=== PATIENT | male | born 1965 | race Caucasian/White ===

== ENCOUNTER → 2016-05-25 | Outpatient (CLI) | payer OTHER ==
[~2016-05-25] VITALS: Ht 175.3 cm; Wt 68.0 kg
[~2016-05-25] MED LIST: LEVO100T5 PO; LIDOCAINE 2% INJ 100 MG/5 ML SDV (FOR ANES.) As Ordered ONE; LR 1,000 ML IV SCH; PROPOFOL 200 MG/20 ML VIAL As Ordered ONE
--- NOTE | 2016-05-25 14:29 | ROOR ---
Patient Name: Kg Le Procedure Date: 05/25/2016 1:53 PM Date of : 1965 Age: 51 Room: [facility] Gender: Male Note Status: Finalized Procedure: Colonoscopy Indications: Screening for colorectal malignant neoplasm Providers: Luis Vann MD Referring MD: ANN MARIE DALTON MD Requesting Provider: Medicines: Monitored Anesthesia Care Complications: No immediate complications. Procedure: Pre-Anesthesia Assessment: - Prior to the procedure, a History and Physical was performed, and patient medications and allergies were reviewed. The patient is competent. The risks and benefits of the procedure and the sedation options and risks were discussed with the patient. All questions were answered and informed consent was obtained. Patient identification and proposed procedure were verified by the physician, the nurse and the assembler knife in the procedure room. Mental Status Examination: alert and oriented. Airway Examination: normal oropharyngeal airway and neck mobility. CV Examination: regular rate and rhythm. Prophylactic Antibiotics: The patient does not require prophylactic antibiotics. Prior Anticoagulants: The patient has taken no previous anticoagulant or antiplatelet agents. ASA Grade Assessment: II - A patient with mild systemic disease. After reviewing the risks and benefits, the patient was deemed in satisfactory condition to undergo the procedure. The anesthesia plan was to use monitored anesthesia care (MAC). Immediately prior to administration of medications, the patient was re-assessed for adequacy to receive sedatives. The heart rate, respiratory rate, oxygen saturations, blood pressure, adequacy of pulmonary ventilation, and response to care were monitored throughout the procedure. The physical status of the patient was re-assessed after the procedure. The Colonoscope [id number] #[id number] was introduced through the anus and advanced to the cecum, identified by the ileocecal valve. The colonoscopy was somewhat difficult due to poor bowel prep. The patient tolerated the procedure well. The quality of the bowel preparation was poor and 10 percent obscured. Findings: The perianal and digital rectal examinations were normal. A small amount of semi-liquid stool was found in the sigmoid colon, in the proximal ascending colon and in the cecum, interfering with visualization. The exam was otherwise without abnormality. Impression: - Preparation of the colon was poor. - Stool in the sigmoid colon, in the proximal ascending colon and in the cecum. - The examination was otherwise normal. - No specimens collected. Recommendation: - Discharge patient to home. - Resume previous diet. - Continue present medications. - Repeat colonoscopy in 5-10 years for screening purposes. Luis Vann MD 05/25/2016 2:29:08 PM Number of Addenda: 0 Note Initiated On: 05/25/2016 1:53 PM Estimated Blood Loss: Estimated blood loss: none.
[2016-05-25 14:47] VITALS: BP 133/75
== END ==
LOC: M OPP 12:06
PROVIDERS: ATTEND Surgery
DX: Z12.11 Encounter for screening for malignant neoplasm of colon (principal); E03.9 Hypothyroidism, unspecified; F17.200 Nicotine dependence, unspecified, uncomplicated; Z79.899 Other long term (current) drug therapy

== ENCOUNTER → 2018-05-24 | Outpatient (REF) | payer OTHER ==
[~2018-05-24] MED LIST changes: -LIDOCAINE 2% INJ 100 MG/5 ML SDV (FOR ANES.) As Ordered ONE; -LR 1,000 ML IV SCH; -PROPOFOL 200 MG/20 ML VIAL As Ordered ONE
== END ==
LOC: M LAB REF 10:53
PROVIDERS: ATTEND Surgery
DX: C44.722 Squamous cell carcinoma of skin of right lower limb, including hip (principal)

== ENCOUNTER → 2019-03-27 | Outpatient (REF) | payer OTHER | LOC: M LAB REF 16:15 | PROVIDERS: ATTEND Dermatology | DX: D48.9 Neoplasm of uncertain behavior, unspecified (principal) ==

== ENCOUNTER → 2021-08-31 | Outpatient (REF) | payer OTHER | LOC: M SFHCDERM 13:57 | PROVIDERS: ATTEND Physician Assistant | DX: L71.0 Perioral dermatitis (principal) ==

== ENCOUNTER → 2021-10-19 | Outpatient (CLI) | payer OTHER ==
[~2021-10-19] MED LIST changes: +HUMU1INJ2 SC; +IBUP200T46 PO; +MULT-90 PO
== END ==
LOC: M LABSMTC 11:46
PROVIDERS: ATTEND Surgery
DX: Z11.52 Encounter for screening for COVID-19 (principal)

== ENCOUNTER 2021-10-22 13:43 | Day surgery (SDC) | payer OTHER ==
[~2021-10-22] VITALS: Ht 175.3 cm; Wt 63.0 kg
[~2021-10-22 13:43] MED LIST changes: +NS 1,000 ML IV ONE
[2021-10-22] MEDS ORDERED: LIDOCAINE 2% 100MG/5ML SDV (FOR ANES.) As Ordered ONE (15:01)
[2021-10-22 16:10] VITALS: BP 120/64
== END 2021-10-22 16:49 | disposition home or self-care (01) ==
LOC: M OPP 13:43
PROVIDERS: ATTEND Surgery
DX: K62.89 Other specified diseases of anus and rectum (principal); C20 Malignant neoplasm of rectum; K56.690 Other partial intestinal obstruction; K62.5 Hemorrhage of anus and rectum; E11.9 Type 2 diabetes mellitus without complications; E03.9 Hypothyroidism, unspecified; F17.210 Nicotine dependence, cigarettes, uncomplicated; Z80.1 Family history of malignant neoplasm of trachea, bronchus and lung; Z79.02 Long term (current) use of antithrombotics/antiplatelets; Z79.1 Long term (current) use of non-steroidal anti-inflammatories (NSAID); Z79.4 Long term (current) use of insulin; Z79.899 Other long term (current) drug therapy

== ENCOUNTER → 2021-10-28 | Outpatient (CLI) | payer OTHER ==
[~2021-10-28] MED LIST changes: +GASTROGRAFIN SOLUTION 30ML (Q9963) As Ordered ONE; +ISOVUE-370 76% 100ML VIAL As Ordered ONE; -NS 1,000 ML IV ONE
== END ==
LOC: M RAD 08:07
PROVIDERS: ATTEND Surgery
DX: C21.1 Malignant neoplasm of anal canal (principal); R91.8 Other nonspecific abnormal finding of lung field
CPT/HCPCS: 71260; 74178; Q9963; Q9967

== ENCOUNTER → 2021-11-02 | Outpatient (CLI) | payer OTHER ==
[~2021-11-02] MED LIST changes: -GASTROGRAFIN SOLUTION 30ML (Q9963) As Ordered ONE; -ISOVUE-370 76% 100ML VIAL As Ordered ONE
[2021-11-02 10:57] LABS: HEMATOCRIT 39.1 % (42.0-52.0); MEAN CORPUSCULAR HEMOGLOBIN 31.3 pg (27.0-33.0); MEAN CORPUSCULAR HGB CONC 33.2 g/dl (32.0-36.5); MEAN CORPUSCULAR VOLUME 94.2 fl (80.0-96.0); PLATELET COUNT, AUTOMATED 174 10^3/uL (150-450); RED BLOOD COUNT 4.15 10^6/uL (4.30-6.10); WHITE BLOOD COUNT 8.7 10^3/uL (4.0-10.0)
[2021-11-02 12:05] LABS: ALBUMIN 3.5 GM/DL (3.2-5.2); ALT/SGPT 15 U/L (12-78); BILIRUBIN,TOTAL 0.8 MG/DL (0.2-1.0); BLOOD UREA NITROGEN 19 MG/DL (7-18); CALCIUM LEVEL 8.9 MG/DL (8.5-10.1); CARBON DIOXIDE LEVEL 28 MEQ/L (21-32); CHLORIDE LEVEL 105 MEQ/L (98-107); CREATININE FOR GFR 0.88 MG/DL (0.70-1.30); GLOMERULAR FILTRATION RATE > 60.0 (>56); GLUCOSE, FASTING 258 MG/DL (70-100); POTASSIUM SERUM 4.4 MEQ/L (3.5-5.1); SODIUM LEVEL 139 MEQ/L (136-145); TOTAL PROTEIN 6.6 GM/DL (6.4-8.2)
== END ==
LOC: M LAB 10:04
PROVIDERS: ATTEND Surgery
DX: C21.1 Malignant neoplasm of anal canal (principal); Z12.11 Encounter for screening for malignant neoplasm of colon

== ENCOUNTER → 2021-11-19 | Outpatient (CLI) | payer OTHER ==
[~2021-11-19] MED LIST changes: +METF10004 PO; +OXYC1TAB23 PO; +TAMS1CAP17 PO
== END ==
LOC: M ONCR 13:02
PROVIDERS: ATTEND General Practice
DX: C21.1 Malignant neoplasm of anal canal (principal); Z80.1 Family history of malignant neoplasm of trachea, bronchus and lung; F17.210 Nicotine dependence, cigarettes, uncomplicated; Z79.890 Hormone replacement therapy; Z79.4 Long term (current) use of insulin

== ENCOUNTER → 2021-12-02 | Outpatient (CLI) | payer OTHER | LOC: M LABSMTC 11:20 | PROVIDERS: ATTEND Anesthesiology | DX: Z01.812 Encounter for preprocedural laboratory examination (principal); Z11.52 Encounter for screening for COVID-19 ==

== ENCOUNTER 2021-12-07 07:08 | Outpatient (RCR) | payer OTHER ==
[~2021-12-07 07:08] MED LIST changes: -LIDOCAINE 1% MDV 20ML VIAL As Ordered ONE; -MIDAZOLAM INJ 2MG/2ML VIAL (J2250 PER 1MG) As Ordered ONE; -NS 1,000 ML IV SCH; -ceFAZolin 2 GM/D5W 50 ML IV BAG (J0690 PER 500MG) As Ordered ONE; -ceFAZolin SOD 2 GM in IV 1 EA IV ONE; -diphenhydrAMINE 50MG/ML VIAL (J1200) As Ordered ONE; -fentaNYL 100 MCG/2 ML INJECTION As Ordered ONE
[2021-12-11] MEDS ORDERED: OXYC1TAB23 PO (13:58)
[2021-12-29] MEDS ORDERED: OXYC1TAB23 PO (09:44)
== END 2021-12-25 ==
LOC: M ONCR 07:08
PROVIDERS: ATTEND General Practice
DX: C21.1 Malignant neoplasm of anal canal (principal)

== ENCOUNTER → 2021-12-07 | Outpatient (CLI) | payer OTHER ==
[~2021-12-07] VITALS: Ht 175.3 cm; Wt 63.0 kg
[~2021-12-07] MED LIST changes: +LIDOCAINE 1% MDV 20ML VIAL As Ordered ONE; +MIDAZOLAM INJ 2MG/2ML VIAL (J2250 PER 1MG) As Ordered ONE; +NS 1,000 ML IV SCH; +ceFAZolin 2 GM/D5W 50 ML IV BAG (J0690 PER 500MG) As Ordered ONE; +ceFAZolin SOD 2 GM in IV 1 EA IV ONE; +diphenhydrAMINE 50MG/ML VIAL (J1200) As Ordered ONE; +fentaNYL 100 MCG/2 ML INJECTION As Ordered ONE
[2021-12-07 15:00] VITALS: BP 127/77
== END ==
LOC: M IRPRO 11:11
PROVIDERS: ATTEND Internal Medicine Medical Oncology
DX: C21.1 Malignant neoplasm of anal canal (principal)
CPT/HCPCS: 36561; 99152; 99153; C1769; C1788; C1894; J0690; J1200; J1642; J1644; J2250; J3010

== ENCOUNTER → 2021-12-22 | Outpatient (POV) | payer OTHER ==
[~2021-12-22] VITALS: Ht 175.3 cm; Wt 67.2 kg
[2021-12-22 10:45] VITALS: BP 119/72
== END ==
LOC: M IRPOV 10:35
PROVIDERS: ATTEND Radiology Diagnostic Radiology
DX: Z45.2 Encounter for adjustment and management of vascular access device (principal)

== ENCOUNTER → 2022-01-15 | Outpatient (REF) | payer OTHER ==
[~2022-01-15] MED LIST changes: +ATOR1TAB21; +ONDA-84 PO; +PROC10TA5 PO; +[UNRECOGNIZED DRUG - CODE] PR
[2022-01-15 14:39] LABS: APPEARANCE, URINE MANUAL CLOUDY (CLEAR); BILIRUBIN, URINE MANUAL NEGATIVE (NEGATIVE); BLOOD URINE MANUAL POSITIVE (NEGATIVE); COLOR, URINE MANUAL LT YELLOW (YELLOW); GLUCOSE, URINE (UA) MANUAL 4+(1000 MG/DL) mg/dL (NEGATIVE); KETONE, URINE MANUAL NEGATIVE (NEGATIVE); LEUKOCYTE ESTERASE, URINE MAN POSITIVE (NEGATIVE); NITRITE, URINE MANUAL POSITIVE (NEGATIVE); PROTEIN, URINE MANUAL 3+ mg/dL (NEGATIVE); SPECIFIC GRAVITY,URINE MANUAL 1.025 (1.002-1.035); UROBILINOGEN, URINE MANUAL NORMAL (NORMAL)
[2022-01-15 15:22] LABS: BACTERIA, URINE LARGE AMOUNT; RBC, URINE TNTC /hpf (0-3); SQUAMOUS EPITHELIAL CELL URINE SMALL AMOUNT /hpf (SMALL AMT); WBC, URINE 30-40 /hpf (0-3)
== END ==
LOC: M SMT 13:16
PROVIDERS: ATTEND Urology
DX: N39.0 Urinary tract infection, site not specified (principal)

== ENCOUNTER 2022-01-25 08:50 | Outpatient (RCR) | payer OTHER ==
[2022-01-25] MEDS ORDERED: TRIA25CR TOP (09:32)
[2022-01-27] MEDS ORDERED: OXYC1TAB23 PO (11:12)
[2022-02-01] MEDS ORDERED: OXYB10TA23 (10:42)
[2022-02-01] MEDS ORDERED: CIPR500T39 (10:42)
[2022-02-08] MEDS ORDERED: MORP-69 PO (09:10)
[2022-02-12] MEDS ORDERED: OXYC1TAB23 PO (12:28)
[2022-02-15] MEDS ORDERED: SILV1CRE60 TOP (13:24)
== END 2022-01-25 23:59 | disposition home or self-care (01) ==
LOC: M ONCR 08:50
PROVIDERS: ATTEND General Practice
DX: C21.1 Malignant neoplasm of anal canal (principal)

== ENCOUNTER 2022-02-16 09:07 | Outpatient (RCR) | payer OTHER ==
[~2022-02-16 09:07] MED LIST changes: +CIPR500T39; +MORP-69 PO; +OXYB10TA23; +SILV1CRE60 TOP; +TRIA25CR TOP
== END 2022-02-24 ==
LOC: M ONCR 09:07
PROVIDERS: ATTEND General Practice
DX: C21.1 Malignant neoplasm of anal canal (principal)

== ENCOUNTER → 2022-03-02 | Outpatient (CLI) | payer OTHER ==
[~2022-03-02] MED LIST changes: +LEVO125C PO
== END ==
LOC: M ONCR 10:45
PROVIDERS: ATTEND General Practice
DX: C21.1 Malignant neoplasm of anal canal (principal); R59.0 Localized enlarged lymph nodes; Z92.21 Personal history of antineoplastic chemotherapy; Z92.3 Personal history of irradiation

== ENCOUNTER → 2022-03-16 | Outpatient (CLI) | payer OTHER | LOC: M ONCR 10:06 | PROVIDERS: ATTEND General Practice | DX: C21.1 Malignant neoplasm of anal canal (principal); Z92.21 Personal history of antineoplastic chemotherapy; Z92.3 Personal history of irradiation ==

== ENCOUNTER → 2022-05-07 | Outpatient (CLI) | payer OTHER ==
[~2022-05-07] MED LIST changes: +GASTROGRAFIN SOLUTION 30ML As Ordered ONE; +ISOVUE-370 76% 100ML VIAL As Ordered ONE
== END ==
LOC: M RAD 09:36
PROVIDERS: ATTEND General Practice
DX: C21.1 Malignant neoplasm of anal canal (principal)

== ENCOUNTER → 2022-05-19 | Outpatient (CLI) | payer OTHER ==
[~2022-05-19] MED LIST changes: -GASTROGRAFIN SOLUTION 30ML As Ordered ONE; -ISOVUE-370 76% 100ML VIAL As Ordered ONE
== END ==
LOC: M ONCR 10:13
PROVIDERS: ATTEND Specialist
DX: C21.1 Malignant neoplasm of anal canal (principal); F17.210 Nicotine dependence, cigarettes, uncomplicated; Z79.4 Long term (current) use of insulin; Z79.891 Long term (current) use of opiate analgesic; Z79.890 Hormone replacement therapy; Z79.899 Other long term (current) drug therapy; Z92.21 Personal history of antineoplastic chemotherapy; Z92.3 Personal history of irradiation

== ENCOUNTER → 2022-06-28 | Outpatient (REF) | payer OTHER | LOC: M SFHCDERM 17:36 | PROVIDERS: ATTEND Physician Assistant | DX: L71.0 Perioral dermatitis (principal) ==

== ENCOUNTER 2022-08-13 11:58 | Day surgery (SDC) | payer OTHER ==
[~2022-08-13] VITALS: Ht 175.3 cm; Wt 67.0 kg
[~2022-08-13 11:58] MED LIST changes: -ATOR1TAB21; +ATOR1TAB21 PO; +CLIN1LOT TOP; +NS 1,000 ML IV ONE
[2022-08-13] MEDS ORDERED: propofoL 200 MG/20 ML VIAL As Ordered ONE (12:38)
[2022-08-13 13:00] VITALS: BP 124/71
== END 2022-08-13 13:10 | disposition home or self-care (01) ==
LOC: M OPP 11:58
PROVIDERS: ATTEND Surgery
DX: Z85.038 Personal history of other malignant neoplasm of large intestine (principal); K52.89 Other specified noninfective gastroenteritis and colitis; F17.200 Nicotine dependence, unspecified, uncomplicated; Z79.02 Long term (current) use of antithrombotics/antiplatelets; Z79.1 Long term (current) use of non-steroidal anti-inflammatories (NSAID); Z79.4 Long term (current) use of insulin; Z79.890 Hormone replacement therapy

== ENCOUNTER → 2022-08-17 | Outpatient (CLI) | payer OTHER ==
[~2022-08-17] MED LIST changes: -NS 1,000 ML IV ONE
== END ==
LOC: M ONCR 10:25
PROVIDERS: ATTEND General Practice
DX: Z08 Encounter for follow-up examination after completed treatment for malignant neoplasm (principal); Z85.048 Personal history of other malignant neoplasm of rectum, rectosigmoid junction, and anus; F17.210 Nicotine dependence, cigarettes, uncomplicated; Z92.21 Personal history of antineoplastic chemotherapy; Z92.3 Personal history of irradiation; Z79.890 Hormone replacement therapy; Z79.4 Long term (current) use of insulin; Z79.899 Other long term (current) drug therapy

== ENCOUNTER → 2022-12-06 | Outpatient (CLI) | payer OTHER ==
[~2022-12-06] MED LIST changes: +LIDOCAINE W/EPINEPHRINE 1% 20ML VIAL As Ordered ONE; +LOPE2TAB12 PO; +MIDAZOLAM INJ 2MG/2ML VIAL As Ordered ONE; +ceFAZolin 2 GM/D5W 50 ML IV BAG As Ordered ONE; +fentaNYL 100 MCG/2 ML INJECTION As Ordered ONE
[2022-12-06 11:05] VITALS: TEMP 98.4
[2022-12-06 12:20] VITALS: BP 132/74; O2SAT 96
== END ==
LOC: M IRPRO 10:38
PROVIDERS: ATTEND Internal Medicine Medical Oncology
DX: Z45.2 Encounter for adjustment and management of vascular access device (principal); C21.0 Malignant neoplasm of anus, unspecified
CPT/HCPCS: 36590; 99152; 99153; J0690; J2250; J3010

== ENCOUNTER → 2023-04-22 | Outpatient (CLI) | payer OTHER ==
[~2023-04-22] MED LIST changes: -LIDOCAINE W/EPINEPHRINE 1% 20ML VIAL As Ordered ONE; -MIDAZOLAM INJ 2MG/2ML VIAL As Ordered ONE; -ceFAZolin 2 GM/D5W 50 ML IV BAG As Ordered ONE; -fentaNYL 100 MCG/2 ML INJECTION As Ordered ONE
== END ==
LOC: M ONCR 10:23
PROVIDERS: ATTEND General Practice
DX: C21.1 Malignant neoplasm of anal canal (principal); F17.210 Nicotine dependence, cigarettes, uncomplicated; Z79.4 Long term (current) use of insulin; Z79.899 Other long term (current) drug therapy

== ENCOUNTER → 2023-05-06 | Outpatient (CLI) | payer OTHER ==
[~2023-05-06] MED LIST changes: +GASTROGRAFIN SOLUTION 30ML As Ordered ONE; +ISOVUE-370 76% 100ML VIAL As Ordered ONE
== END ==
LOC: M RAD 11:26
PROVIDERS: ATTEND Internal Medicine Medical Oncology
DX: C21.0 Malignant neoplasm of anus, unspecified (principal)

== ENCOUNTER → 2023-07-05 | Outpatient (CLI) | payer OTHER ==
[~2023-07-05] MED LIST changes: -GASTROGRAFIN SOLUTION 30ML As Ordered ONE; -ISOVUE-370 76% 100ML VIAL As Ordered ONE
== END ==
LOC: M WUC 11:50
PROVIDERS: ATTEND Physician Assistant
DX: S40.011A Contusion of right shoulder, initial encounter (principal); W13.2XXA Fall from, out of or through roof, initial encounter; Y92.009 Unspecified place in unspecified non-institutional (private) residence as the place of occurrence of the external cause

== ENCOUNTER → 2023-08-25 | Outpatient (CLI) | payer OTHER | LOC: M ONCR 10:23 | PROVIDERS: ATTEND General Practice | DX: Z08 Encounter for follow-up examination after completed treatment for malignant neoplasm (principal); Z85.048 Personal history of other malignant neoplasm of rectum, rectosigmoid junction, and anus; R29.6 Repeated falls; Z71.2 Person consulting for explanation of examination or test findings; F17.210 Nicotine dependence, cigarettes, uncomplicated; Z79.890 Hormone replacement therapy; Z79.4 Long term (current) use of insulin; Z79.899 Other long term (current) drug therapy; Z92.21 Personal history of antineoplastic chemotherapy; Z92.3 Personal history of irradiation ==

== ENCOUNTER → 2024-02-08 | Outpatient (CLI) | payer OTHER ==
[~2024-02-08] MED LIST changes: +GASTROGRAFIN SOLUTION 30ML As Ordered ONE; +ISOVUE-370 76% 100ML VIAL As Ordered ONE
== END ==
LOC: M RAD 09:04
PROVIDERS: ATTEND Dietitian, Registered
DX: C21.0 Malignant neoplasm of anus, unspecified (principal)

== ENCOUNTER → 2024-02-28 | Outpatient (CLI) | payer OTHER ==
[~2024-02-28] MED LIST changes: -GASTROGRAFIN SOLUTION 30ML As Ordered ONE; -ISOVUE-370 76% 100ML VIAL As Ordered ONE
== END ==
LOC: M ONCR 10:38
PROVIDERS: ATTEND General Practice
DX: C21.1 Malignant neoplasm of anal canal (principal); F17.210 Nicotine dependence, cigarettes, uncomplicated; Z79.4 Long term (current) use of insulin; Z79.890 Hormone replacement therapy; Z79.899 Other long term (current) drug therapy; Z92.21 Personal history of antineoplastic chemotherapy; Z92.3 Personal history of irradiation

== ENCOUNTER → 2025-02-12 | Outpatient (CLI) | payer OTHER ==
[~2025-02-12] MED LIST changes: +ISOVUE-370 76% 100 ML VIAL As Ordered ONE; -LEVO125C PO; +LEVO125C2 PO; -TRIA25CR TOP; +TRIA80CR15 TOP
== END ==
LOC: M RAD 08:46
PROVIDERS: ATTEND Internal Medicine Medical Oncology
DX: Z85.048 Personal history of other malignant neoplasm of rectum, rectosigmoid junction, and anus (principal)
CPT/HCPCS: 71260; 74177; Q9967